=== PATIENT | female | born 1965 | race Caucasian/White ===

== ENCOUNTER → 2023-05-31 17:05 | Outpatient (REF) | payer MEDICARE, OTHER, SELFPAY ==
[2023-05-31 17:37] LABS: % Basophils 0.9 % (0-2); % Eosinophils 1.1 % (0-6); % Immature Granulocytes 0.4 % (0-0.5); % Lymphocytes 28.3 % (20.5-51.1); % Monocytes 17.1 % (1.7-9.3); % Neutrophils 52.2 % (42.2-75.2); Absolute Eosinophils 0.1 10^3/uL (0-0.7); Absolute Lymphocytes 1.3 10^3/uL (1.2-3.4); Absolute Monocytes 0.8 10^3/uL (0.1-0.6); Absolute Neutrophils 2.3 10^3/uL (1.4-6.5); Hematocrit 39.6 % (37.0-47.0); Hemoglobin 13.4 g/dL (12.0-16.0); Mean Corp Hgb Conc. 33.8 g/dL (33.0-37.0); Mean Corpuscular Hgb 29.9 pg (27.0-31.0); Mean Corpuscular Volume 88.4 fL (81.0-99.0); Mean Platelet Volume 11.4 fL (7.4-10.4); Nucleated Red Blood Cells % 0 %; Platelet Count 151 10^3/uL (130-400); Red Blood Cell Count 4.48 10^6/uL (4.20-5.40); White Blood Cell Count 4.5 10^3/uL (4.8-10.8)
[2023-05-31 17:53] LABS: Blood Urea Nitrogen 22 mg/dl (7-17); Calcium 9.1 mg/dl (8.4-10.2); Carbon Dioxide 25 mmol/L (22-30); Chloride 100 mmol/L (98-107); Glucose 114 mg/dl (70-99); Potassium 3.9 mmol/L (3.5-5.1); Sodium 136 mmol/L (135-145); eGFR 29.86
== END ==
LOC: REG 17:05
PROVIDERS: ATTENDING PHYSICIAN Registered Nurse
DX: R05.1 Acute cough (principal)
CPT/HCPCS: 36415; 71046; 80048; 85025

== ENCOUNTER 2024-01-19 06:37 | Day surgery (SDC) | payer MEDICARE, OTHER, SELFPAY ==
[2024-01-19 13:37] VITALS: BMI 20.2
[2024-01-19 13:38] VITALS: BMI 20.2
[2024-01-19 13:39] VITALS: BP 137/69
[2024-01-19 16:22] VITALS: BP 119/53
[2024-01-19 16:30] VITALS: BP 113/67
--- NOTE | 2024-01-19 16:33 | W.IMMPOSTOP ---
Surgical Immed Post Op Note
-
Primary Surgeon: Rio Winter MD
Occupational Therapist Assistants; BABAK Rizo
Pre-op Diagnosis: Symptomatic external hemorrhoidal tags
Post-op Diagnosis: Same
Procedure Performed: Excision of hemorrhoidal tags (3)
Anesthesia Type: MAC and local
Specimen / Cultures: None
Estimated Blood Loss: 8cc
Complications: None
Operative Findings: Large external tags (RP>RA>LL)
[2024-01-19 16:45] VITALS: BP 124/60
== END 2024-01-19 17:05 | disposition home or self-care (01) ==
LOC: SDS 06:37
PROVIDERS: ATTENDING PHYSICIAN Specialist; REFERRING PHYSICIAN Surgery
DX: Z12.11 Encounter for screening for malignant neoplasm of colon (principal); D12.2 Benign neoplasm of ascending colon; K64.4 Residual hemorrhoidal skin tags; Z86.0101 Personal history of adenomatous and serrated colon polyps; Z79.01 Long term (current) use of anticoagulants
CPT/HCPCS: 46230; 45385; 88305

== ENCOUNTER 2024-01-26 11:13 | Emergency (ER) | payer MEDICARE, OTHER, SELFPAY ==
[2024-01-26] VITALS (7 sets, daily range): BP systolic 110–124; BP diastolic 53–66
[2024-01-26 12:29] LABS: % Basophils 0.4 % (0-2); % Lymphocytes 19.3 % (20.5-51.1); % Monocytes 9.6 % (1.7-9.3); % Neutrophils 66.7 % (42.2-75.2); Absolute Eosinophils 0.3 10^3/uL (0-0.7); Absolute Immature Granulocytes 0.1 10^3/uL (0-0.05); Absolute Lymphocytes 1.6 10^3/uL (1.2-3.4); Absolute Monocytes 0.8 10^3/uL (0.1-0.6); Absolute Neutrophils 5.5 10^3/uL (1.4-6.5); Hematocrit 32.1 % (37.0-47.0); Hemoglobin 10.7 g/dL (12.0-16.0); Mean Corp Hgb Conc. 33.3 g/dL (33.0-37.0); Mean Corpuscular Hgb 29.4 pg (27.0-31.0); Mean Corpuscular Volume 88.2 fL (81.0-99.0); Mean Platelet Volume 11.4 fL (7.4-10.4); Nucleated Red Blood Cells % 0 %; Platelet Count 200 10^3/uL (130-400); Red Blood Cell Count 3.64 10^6/uL (4.20-5.40); Red Cell Dist. Width 13.6 % (11.5-14.5); White Blood Cell Count 8.3 10^3/uL (4.8-10.8)
--- NOTE | 2024-01-26 12:38 | ED.GENMED ---
History of Present Illness
<Eliel Jackson PA-C - Last Filed: 01/28/24 08:14>
General
Chief Complaint: Chest Pain
Source: patient
Time Seen by Provider: 01/26/24 11:35
History of Present Illness
History of Present Illness:
58-year-old female with extensive cardiopulmonary past medical history presenting to the emergency department for evaluation after she noticed some discomfort to the right side of her chest yesterday and bruising just around the lateral portion of
the right breast and right arm pain. Patient states that last Wednesday she had a colonoscopy and anal skin tag removal and due to being on Coumadin and Plavix had to stop this medication 5 days prior to the procedure. Patient had the procedure
and had some mild bleeding afterwards and did not resume her Coumadin until this past Wednesday. Prior to taking the Coumadin patient had her INR rechecked and it was 4 so she was told to hold the Coumadin but continue Plavix and yesterday took a half
dose of the Coumadin. Given her cardiac history she decided to come to the ER for evaluation to ensure she was not in any cardiac related event. Patient believes that the bruising could be from she was laying and sleeping due to the discomfort
around the rectal area from her procedures.
Past History
<Eliel Jackson PA-C - Last Filed: 01/28/24 08:14>
Past History
ED Past Medical History: CAD, CHF, GERD, HTN, GA, Valvular disease and Other
ED Past Surgical History: Cardiac (Bypass, MVR) and Other
Social History
Tobacco: Non-smoker
Alcohol: None
Drug: None
Personal:
Living: with family
Employment: Not employed
Family History
Family History: Other (Noncontributory)
Review of Systems
<Eliel Jackson PA-C - Last Filed: 01/28/24 08:14>
Review of Systems
All Other Systems: ROS reviewed and negative except as documented in HPI and ROS
Phy Exam
<Eliel Jackson PA-C - Last Filed: 01/28/24 08:14>
Physical Exam
Physical Exam:
GENERAL: Alert , in no apparent distress
EYE: clear conjunctiva b/l
HEAD: NCAT
ENT: mmm.
CARDIAC: Regular rate and rhythm .
LUNGS: Clear breath sounds bilaterally, no acute respiratory distress, no wheezes/rales/rhonchi
ABDOMEN: Soft, without focal tenderness, no r/g, no cvat, scattered ecchymosis along the anterior part of the abdomen secondary to recent Lovenox injections
NEUROLOGICAL: Alert and oriented
SKIN: Warm and dry, skin intact. Small hematoma just to the lateral aspect of the right breast
MUSCULOSKELETAL: No edema, well perfused.
PSYCH: Normal and appropriate interaction.
Scores
<Eliel Jackson PA-C - Last Filed: 01/28/24 08:14>
Heart Failure Risk
Heart Failure Risk Score: Not Applicable
Heart Score for Chest Pain Patients
STEMI patient?: Not applicable
Withdrawal Assessment of Alcohol
Withdrawal Assessment Completed?: Not applicable
Course
<Eliel Jackson PA-C - Last Filed: 01/28/24 08:14>
Orders/Labs/Results
Orders:
Orders
01/26/24 11:16
EKG [Electrocardiogram (*1)] Urgent
Reason for Study: Chest Pain
EKG- Treatment ONCE
01/26/24 12:10
CT Chest With Iv Contrast Urgent
Comment:
Reason For Exam: right lateral chest wall ecchymosis, non-trauma
01/26/24 12:19
Basic Metabolic Panel Urgent
Complete Blood Count/With Diff Urgent
PTT Urgent
Prothrombin Time Urgent
Troponin I Urgent
01/26/24 14:23
Troponin I Urgent
01/26/24 15:52
Acetaminophen [Tylenol] 650 mg PO NOW STA
Tramadol HCl [Ultram] 50 mg PO NOW STA
01/26/24 15:53
Electrocardiogram (*1) Urgent
Reason for Study: Chest Pain
EKG- Treatment ONCE
01/26/24 17:40
Troponin I Urgent
Abnormal Lab Results
01/26/24
12:19
RBC 3.64 L 10^6/uL
(4.20-5.40)
Hgb 10.7 L g/dL
(12.0-16.0)
Hct 32.1 L %
(37.0-47.0)
MPV 11.4 H fL
(7.4-10.4)
Abs Immat Gran (auto) 0.1 H 10^3/uL
(0-0.05)
Absolute Monos (auto) 0.8 H 10^3/uL
(0.1-0.6)
Immature Gran % 1.0 H %
(0-0.5)
Lymphocytes % 19.3 L %
(20.5-51.1)
Monocytes % 9.6 H %
(1.7-9.3)
PT 24.6 H Sec
(11.4-14.6)
APTT 46.7 H Sec
(23.4-35.0)
Creatinine 1.6 H mg/dL
(0.6-1.0)
01/26/24 12:19
01/26/24 12:19
Vital Signs
Initial and Last Documented VS:
Initial Vital Signs
Temp Pulse Resp BP Pulse Ox
98.1 F 78 18 122/65 98
01/26/24 11:30 01/26/24 11:30 01/26/24 11:30 01/26/24 11:30 01/26/24 11:30
Last Documented Vital Signs
Temp Pulse Resp BP Pulse Ox
98.1 F 59 20 111/53 100
01/26/24 11:30 01/26/24 19:15 01/26/24 19:15 01/26/24 19:00 01/26/24 19:15
<USHA Holbrook - Last Filed: 01/26/24 19:13>
Orders/Labs/Results
Orders:
Orders
01/26/24 11:16
EKG [Electrocardiogram (*1)] Urgent
Reason for Study: Chest Pain
EKG- Treatment ONCE
01/26/24 12:10
CT Chest With Iv Contrast Urgent
Comment:
Reason For Exam: right lateral chest wall ecchymosis, non-trauma
01/26/24 12:19
Basic Metabolic Panel Urgent
Complete Blood Count/With Diff Urgent
PTT Urgent
Prothrombin Time Urgent
Troponin I Urgent
01/26/24 14:23
Troponin I Urgent
01/26/24 15:52
Acetaminophen [Tylenol] 650 mg PO NOW STA
Tramadol HCl [Ultram] 50 mg PO NOW STA
01/26/24 15:53
Electrocardiogram (*1) Urgent
Reason for Study: Chest Pain
EKG- Treatment ONCE
01/26/24 17:40
Troponin I Urgent
Abnormal Lab Results
01/26/24
12:19
RBC 3.64 L 10^6/uL
(4.20-5.40)
Hgb 10.7 L g/dL
(12.0-16.0)
Hct 32.1 L %
(37.0-47.0)
MPV 11.4 H fL
(7.4-10.4)
Abs Immat Gran (auto) 0.1 H 10^3/uL
(0-0.05)
Absolute Monos (auto) 0.8 H 10^3/uL
(0.1-0.6)
Immature Gran % 1.0 H %
(0-0.5)
Lymphocytes % 19.3 L %
(20.5-51.1)
Monocytes % 9.6 H %
(1.7-9.3)
PT 24.6 H Sec
(11.4-14.6)
APTT 46.7 H Sec
(23.4-35.0)
Creatinine 1.6 H mg/dL
(0.6-1.0)
01/26/24 12:19
01/26/24 12:19
Vital Signs
Initial and Last Documented VS:
Initial Vital Signs
Temp Pulse Resp BP Pulse Ox
98.1 F 78 18 122/65 98
01/26/24 11:30 01/26/24 11:30 01/26/24 11:30 01/26/24 11:30 01/26/24 11:30
Last Documented Vital Signs
Temp Pulse Resp BP Pulse Ox
98.1 F 59 20 111/53 100
01/26/24 11:30 01/26/24 19:15 01/26/24 19:15 01/26/24 19:00 01/26/24 19:15
<Eliel Jackson PA-C - Last Filed: 01/28/24 08:14>
MDM/Problems Addressed
Differential Diagnosis Includes:
hematoma, anemia, thrombocytopenia, rib fracture, minimal concern for ACS
MDM/Problems Addressed:
58-year-old female presenting to the ER for evaluation of right-sided chest wall discomfort, noticed a atraumatic bruising and became concerned. Recently with supratherapeutic INR. Has been holding her Coumadin but did resume the Coumadin today.
Hemodynamically stable and in no acute distress. Will check labs including repeat INR and CT imaging to evaluate for any further complications.
Chronic conditions affecting care: CAD
<USHA Holbrook - Last Filed: 01/26/24 19:13>
MDM/Problems Addressed
MDM/Problems Addressed:
58-year-old female presenting to the ER for evaluation of right-sided chest wall discomfort, noticed a atraumatic bruising and became concerned. Recently with supratherapeutic INR. Has been holding her Coumadin but did resume the Coumadin today.
Hemodynamically stable and in no acute distress. Will check labs including repeat INR and CT imaging to evaluate for any further complications.
<Eliel Jackson PA-C - Last Filed: 01/28/24 08:14>
*Pulse Oximetry
Patient hypoxic: no
*Critical Care Note
Total Time (30-74mins, 75-104mins- exclusive of procedures): Not Applicable
Data Reviewed
Review of Other/Old Records Reveals: Labs, Records and Testing
Source: patient
<Eliel Jackson PA-C - Last Filed: 01/28/24 08:14>
Patient Management
Discussion with other providers: Thermoplastic Technician
Escalation/DeEscalation of care consider admission/obs:
2nd troponin remains WNL however is non-negative. D/W cardiology who recommends obtaining 3rd set. If trop continues to rise will admit for continued trending. If plateaus or downtrends, will send home.
Patient requesting something for pain. Tylenol and tramadol ordered
ED Attending Note
<Eliel Jackson PA-C - Last Filed: 01/28/24 08:14>
-
Portions of this chart may have been created with voice recognition software.� Occasional wrong word or��sound alike� substitutions may have occurred due to the inherent limitations of voice recognition software.
Discharge Plan
Departure
Patient Disposition: Home (Routine Discharge)
Date of Disposition: 01/26/24
Time of Disposition: 19:06
Patient with high blood pressure during this ER visit?: No
Condition: Fair
Covid-19: Not Applicable
Discharge Problem:
Chest wall hematoma
Instructions: Hematoma
Prescriptions:
No Action
tramadol-acetaminophen 1 EACH tablet
2 ea PO QIDPRN PRN (Reason: pain)
baclofen 10 MG tablet
10 mg PO QIDPRN PRN (Reason: Spasm)
warfarin [Jantoven] 2 MG tablet
2 mg PO QPM
Rx Instructions:
Take 1-2 tabs daily as directed
nitroglycerin 0.4 MG tablet, sublingual
0.4 mg sublingual [id number] PRN (Reason: chest pain)
montelukast 10 MG tablet
10 mg PO QPM
rosuvastatin [Crestor] 40 MG tablet
40 mg PO QPM
clopidogrel 75 mg Tablet
75 mg PO DAILY
loratadine [Claritin] 10 mg Tablet
10 mg PO DAILY
levalbuterol tartrate 45 mcg/actuation Hfa Aerosol Inhaler
2 inh INHALATION Q4H
potassium chloride 20 mEq Tablet Extended Release
20 meq PO DAILY
furosemide 40 mg Tablet
20 mg PO DAILY
esomeprazole magnesium [Nexium] 20 mg Capsule,Delayed Release(Dr/Ec)
40 mg PO BID
clindamycin phosphate 1 % Lotion
1 applic TOPICAL PRN PRN (Reason: allergy)
dapagliflozin propanediol [Farxiga] 10 mg Tablet
10 mg PO DAILY
Trelegy Ellipta 200-62.5-25 mcg Blister With Device
1 inh INHALATION DAILY
hydralazine 10 mg Tablet
10 mg PO TID
isosorbide mononitrate 30 mg Tablet Extended Release 24 Hr
30 mg PO DAILY
spironolactone 25 mg Tablet
25 mg PO DAILY
enoxaparin [Lovenox] 60 mg/0.6 mL Syringe
60 mg SC Q12H
cholecalciferol (vitamin D3) [Vitamin D3] 10 mcg (400 unit) Capsule
10 mcg PO DAILY
Praluent Syringe 75 mg/mL Syringe
SC Q2W
metoprolol succinate 100 mg Capsule,Sprinkle,Er 24hr
100 mg PO DAILY
aspirin 81 mg Capsule
81 mg PO DAILY
calcium 600 mg
600 mg PO
oxycodone 5 mg tablet
5 mg PO Q6H PRN (Reason: Pain) Qty: 30 0RF
Referrals:
Perico Bradford Jr., [Family Provider] -
Raffaele Galo MD [Active] -
Activity Restrictions/Additional Instructions:
As discussed restart your Coumadin. Follow up with your family doctor in the next several days for reevaluation of your symptoms. Also it is recommended that you have repeat imaging for chest wall hematoma to ensure resolution. Have your
Coumadin level checked by the your family doctor cardiology in the next several days.
Follow-up with cardiology as discussed.
Return if any worsening of symptoms.
Interventions
Interventions:
*Risk Screen - Suicide Last Done: 01/26/24 12:02
*General Assessment Last Done: 01/26/24 12:02
*Neglect/Abuse Screening Last Done: 01/26/24 12:02
ED- Fall Risk Assessment Last Done: 01/26/24 12:02
*ED COVID-19 Vaccine History Last Done: 01/26/24 12:02
*Nursing Disposition Last Done: 01/26/24 19:36
ED- Cardiac Assessment Last Done: 01/26/24 12:02
Discharge Date and Time
Discharge Date/Time: 01/26/24 19:30
Print Language: GEORGIAN
[2024-01-26 12:39] LABS: INR 2.19; PT 24.6 Sec (11.4-14.6)
[2024-01-26 12:40] LABS: APTT 46.7 Sec (23.4-35.0)
[2024-01-26 12:50] LABS: Blood Urea Nitrogen 17 mg/dl (7-17); Calcium 9.4 mg/dl (8.4-10.2); Carbon Dioxide 22 mmol/L (22-30); Chloride 106 mmol/L (98-107); Glucose 97 mg/dl (70-99); Potassium 3.9 mmol/L (3.5-5.1); Sodium 140 mmol/L (135-145); eGFR 36.69
[2024-01-26 12:52] LABS: Troponin I 0.015 ng/ml
[2024-01-26 15:06] LABS: Troponin I 0.019 ng/ml
[2024-01-26] MEDS: TYLENOL 650 MG PO (15:56)
[2024-01-26] MEDS: ULTRAM 50 MG PO (15:56)
[2024-01-26 18:20] LABS: Troponin I 0.014 ng/ml
== END 2024-01-26 19:30 | disposition home or self-care (01) ==
LOC: EMR 11:13
PROVIDERS: Physician Assistant Medical; EMERGENCY PHYSICIAN Student in an Organized Health Care Education/Training Program; FAMILY PHYSICIAN Family Medicine
DX: S20.211A Contusion of right front wall of thorax, initial encounter (principal); X58.XXXA Exposure to other specified factors, initial encounter; I11.0 Hypertensive heart disease with heart failure; I50.9 Heart failure, unspecified; I25.10 Atherosclerotic heart disease of native coronary artery without angina pectoris; K21.9 Gastro-esophageal reflux disease without esophagitis; I25.2 Old myocardial infarction; Z79.01 Long term (current) use of anticoagulants; Z79.02 Long term (current) use of antithrombotics/antiplatelets; Z95.1 Presence of aortocoronary bypass graft
CPT/HCPCS: 99284; 71260; 80048; 84484; 85025; 85610; 85730; 93005; Q9967

== ENCOUNTER → 2024-02-10 11:14 | Outpatient (REF) | payer MEDICARE, OTHER, SELFPAY | LOC: RAD 11:14 | PROVIDERS: ATTENDING PHYSICIAN Family Medicine; REFERRING PHYSICIAN Internal Medicine Cardiovascular Disease | DX: S20.211D Contusion of right front wall of thorax, subsequent encounter (principal) | CPT/HCPCS: 71250 ==

== ENCOUNTER → 2024-04-28 13:42 | Outpatient (REF) | payer MEDICARE, OTHER, SELFPAY | LOC: WDC 13:42 | PROVIDERS: ATTENDING PHYSICIAN Family Medicine | DX: Z12.31 Encounter for screening mammogram for malignant neoplasm of breast (principal) | CPT/HCPCS: 77063; 77067 ==

== ENCOUNTER → 2024-08-02 10:43 | Outpatient (REF) | payer MEDICARE, OTHER, SELFPAY | LOC: RAD 10:43 | PROVIDERS: ATTENDING PHYSICIAN Registered Nurse; FAMILY PHYSICIAN Family Medicine | DX: E78.2 Mixed hyperlipidemia (principal); I65.23 Occlusion and stenosis of bilateral carotid arteries | CPT/HCPCS: 93880 ==

== ENCOUNTER → 2025-02-16 09:39 | Outpatient (REF) | payer MEDICARE, OTHER, SELFPAY | LOC: RAD 09:39 | PROVIDERS: ATTENDING PHYSICIAN Family Medicine | DX: Z78.0 Asymptomatic menopausal state (principal) | CPT/HCPCS: 77080 ==

== ENCOUNTER → 2025-02-21 10:41 | Outpatient (REF) | payer MEDICARE, OTHER, SELFPAY | LOC: HWRAD 10:41 | PROVIDERS: ATTENDING PHYSICIAN Family Medicine | DX: R10.31 Right lower quadrant pain (principal) | CPT/HCPCS: 74176 ==